=== PATIENT | female | born 1985 | race Caucasian/White ===

== ENCOUNTER → 2019-05-30 | Outpatient (CLI) | payer BC, SELFPAY ==
[2019-05-30 09:44] LABS: HEMOGLOBIN A1C 6.7 % (< 5.7)
== END ==
LOC: LB.CLINIC 09:19
PROVIDERS: ATTEND Nurse Practitioner Family
DX: E11.9 Type 2 diabetes mellitus without complications (principal)
CPT/HCPCS: 36415; 80048; 83036

== ENCOUNTER 2021-04-15 12:11 | Emergency (ER) | payer BC, OTHER ==
[2021-04-15] MEDS ORDERED: Albuterol/Ipratropium 3.0-0.5 MG/3 ML Neb Soln NEB SCH (13:00)
[2021-04-15 13:44] VITALS: BP 184/92; PULSE 87
[2021-04-15] MEDS ORDERED: LORazepam 2 MG/ML SDV IM ONE (13:59)
[2021-04-15] MEDS ORDERED: LORazepam 2 MG/ML SDV ONE (14:11)
--- NOTE | 2021-04-15 14:22 | EDM.PDOC ---
ED HPI GENERAL MEDICAL PROBLEM - General Chief Complaint: Respiratory Problem Stated Complaint: POSSIBLE ALLERGIC REACTION Time Seen by Provider: 04/15/21 12:15 Source of Information: Reports: Patient History Limitations: Reports: No Limitations - History of Present Illness INITIAL COMMENTS - FREE TEXT/NARRATIVE: 35-year-old female presents to the ED complaining of shortness of breath, chest tightness, flushing. Symptoms came on gradually today while at work, patient felt like she could not keep her mask on due to her feeling of shortness of breath. Patient has had similar responses in the past usually due to asthma or anxiety. Patient has been dealing with increased allergy issues over the last couple weeks, with increased phlegm production. Patient has been treating herself with Tasia. Has been exposed to multiple known allergens to include mowing her lawn, and be exposed to smokers. Patient also got a booster shot for her Covid vaccine yesterday. Positive for: Headache, dyspnea on exertion, dizzy lightheaded, near syncope, flushed. Negative for: Cardiac chest pain, syncope/loss of consciousness, trauma, blurred vision, difficulty swallowing, bloating, constipation diarrhea, dark tarry stool/blood on stool, urine has been normal color smell frequency volume. 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 States she had it when she was younger and on no medications at this time. 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: Reports: Polycystic Ovaries, Other (See Below) Other PAYROLL MANAGER History: HPV Psychiatric History: Reports: Bipolar Endocrine/Metabolic History: Reports: Diabetes, Type II - Infectious Disease History Infectious Disease History: Reports: Chicken Pox, Influenza - Past Surgical History HEENT Surgical History: Reports: Adenoidectomy, Tonsillectomy Musculoskeletal Surgical History: Reports: Other (See Below) Other Musculoskeletal Surgeries/Procedures:: Pt has had a previous ankle surgery Social & Family History - Recreational Drug Use Recreational Drug Use: No ED ROS GENERAL - Review of Systems Review Of Systems: Comprehensive ROS is negative, except as noted in HPI. ED EXAM, GENERAL - Physical Exam Exam: See Below Free Text/Narrative:: 35-year-old female found sitting on the stretcher in bay 3. No apparent distress. GCS 456. Speaking in full sentences. Face flushed. Exam Limited By: No Limitations General Appearance: Alert, WD/WN, No Apparent Distress Eye Exam: Bilateral Eye: EOMI, PERRL Ears: Normal Canal, Hearing Grossly Normal, Other (Serous fluid behind TMs bilaterally) Ear Exam: Bilateral Ear: Canal Normal, Other (Serous effusion bilateral) Nose: Normal Inspection, Normal Mucosa (Pale mucosa), No Blood Throat/Mouth: Normal Inspection, Normal Lips, Normal Teeth, Normal Gums, Normal Oropharynx, Normal Voice, No Airway Compromise, Other (Evidence of postnasal drip) Head: Atraumatic, Normocephalic Neck: Normal Inspection, Supple, Non-Tender, Full Range of Motion. No: Lymphadenopathy (R), Lymphadenopathy (L) Respiratory/Chest: No Respiratory Distress, Lungs Clear, Normal Breath Sounds, No Accessory Muscle Use, Chest Non-Tender. No: Respiratory Distress, Crackles, Rales, Rhonchi, Wheezing, Stridor Cardiovascular: Normal Peripheral Pulses, Regular Rate, Rhythm, No Edema, No Gallop, No JVD, No Murmur, No Rub GI/Abdominal: Soft, Non-Tender, No Organomegaly, No Distention, No Mass Back Exam: Normal Inspection. No: CVA Tenderness (R), CVA Tenderness (L) Extremities: Normal Inspection, Normal Range of Motion, Non-Tender, No Pedal Edema, Normal Capillary Refill, Other (Chronic swelling due to previous right ankle injury) Neurological: Alert, Oriented, Normal Cognition, Normal Gait, Normal Reflexes, No Motor/Sensory Deficits Psychiatric: Normal Affect, Normal Mood Skin Exam: Warm (Flushed in the face), Dry Lymphatic: No Adenopathy #1 Interpretation EKG Date: 04/15/21 Rhythm: NSR P-Wave: Present QRS: Normal ST-T: Normal Course - Vital Signs Last Recorded V/S: Last Vital Signs Temp 96 F L 04/15/21 12:24 Pulse 87 04/15/21 13:44 Resp 18 04/15/21 13:44 BP 184/92 H 04/15/21 13:44 Pulse Ox 99 04/15/21 13:44 - Orders/Labs/Meds Orders: Active Orders 24 hr Category Date Time Status RT Aerosol Therapy [RC] ASDIRECTED Care 04/15/21 12:47 Ordered Albuterol/Ipratropium [DuoNeb 3.0-0.5 MG/3 ML] Med 04/15/21 13:00 Ordered 3 ml NEB QIDRT Medication Orders Albuterol/Ipratropium (Albuterol/Ipratropium 3.0-0.5 Mg/3 Ml Neb Soln) 3 ml NEB QID JOSE Last Admin: 04/15/21 13:28 Dose: 3 ml Documented by: MAYCO Labs: Laboratory Tests 04/15/21 04/15/21 04/15/21 Range/Units 12:52 12:53 13:26 WBC 8.5 (4.0-11.0) K/uL RBC 4.53 (3.80-5.80) M/uL Hgb 13.5 (11.5-16.5) g/dL Hct 39.4 (37.0-47.0) % MCV 87 (76-96) fL MCH 29.8 (27.0-32.0) pg MCHC 34.3 (31.0-35.0) g/dL RDW 13.2 (11.0-16.0) % Plt Count 287 (150-500) K/uL MPV 10.1 H (6.0-10.0) fL Neut % (Auto) 76.5 H (45.0-70.0) % Lymph % (Auto) 14.8 L (20.0-40.0) % Sullivan % (Auto) 6.1 (3.0-10.0) % Eos % (Auto) 2.2 (1.0-5.0) % Baso % (Auto) 0.4 (0.0-0.5) % Neut # (Auto) 6.48 (2.00-7.50) K/uL Lymph # (Auto) 1.25 L (1.50-4.00) K/uL Sullivan # (Auto) 0.52 (0.20-0.80) K/uL Eos # (Auto) 0.19 (0.04-0.40) K/uL Baso # (Auto) 0.03 (0.02-0.10) K/uL Sodium (136-145) mmol/L Potassium (3.5-5.1) mmol/L Chloride (98-107) mmol/L Carbon Dioxide (21.0-32.0) mmol/L Anion Gap (5.0-15.0) mmol/L BUN (8-26) mg/dL Creatinine (0.55-1.02) mg/dL Est Cr Clr Drug Dosing Estimated GFR (MDRD) (>60) MLS/MIN BUN/Creatinine Ratio (6-25) Glucose (74-100) mg/dL Calcium (8.5-10.1) mg/dL Urine Color Yellow Urine Appearance Clear (CLEAR) Urine pH 6.5 (5.0-8.0) Ur Specific [place] 1.025 (1.003-1.030) Urine Protein Negative (NEGATIVE) mg/dL Urine Glucose (UA) 250 H (NEGATIVE) mg/dL Urine Ketones 40 H (NEGATIVE) mg/dL Urine Occult Blood Negative (NEGATIVE) Urine Nitrite Negative (NEGATIVE) Urine Bilirubin Negative (NEGATIVE) Urine Urobilinogen 0.2 (0.2-1.0) E.U./dL Ur Leukocyte Esterase Negative (NEGATIVE) SARS CoV-2 RNA Rapid BRITTA Negative 04/15/21 Range/Units 13:26 WBC (4.0-11.0) K/uL RBC (3.80-5.80) M/uL Hgb (11.5-16.5) g/dL Hct (37.0-47.0) % MCV (76-96) fL MCH (27.0-32.0) pg MCHC (31.0-35.0) g/dL RDW (11.0-16.0) % Plt Count (150-500) K/uL MPV (6.0-10.0) fL Neut % (Auto) (45.0-70.0) % Lymph % (Auto) (20.0-40.0) % Sullivan % (Auto) (3.0-10.0) % Eos % (Auto) (1.0-5.0) % Baso % (Auto) (0.0-0.5) % Neut # (Auto) (2.00-7.50) K/uL Lymph # (Auto) (1.50-4.00) K/uL Sullivan # (Auto) (0.20-0.80) K/uL Eos # (Auto) (0.04-0.40) K/uL Baso # (Auto) (0.02-0.10) K/uL Sodium 137 (136-145) mmol/L Potassium 3.9 (3.5-5.1) mmol/L Chloride 103 (98-107) mmol/L Carbon Dioxide 25.8 (21.0-32.0) mmol/L Anion Gap 12.1 (5.0-15.0) mmol/L BUN 10 D (8-26) mg/dL Creatinine 0.80 (0.55-1.02) mg/dL Est Cr Clr Drug Dosing TNP Estimated GFR (MDRD) > 60 (>60) MLS/MIN BUN/Creatinine Ratio 12.5 (6-25) Glucose 211 H (74-100) mg/dL Calcium 9.2 (8.5-10.1) mg/dL Urine Color Urine Appearance (CLEAR) Urine pH (5.0-8.0) Ur Specific [place] (1.003-1.030) Urine Protein (NEGATIVE) mg/dL Urine Glucose (UA) (NEGATIVE) mg/dL Urine Ketones (NEGATIVE) mg/dL Urine Occult Blood (NEGATIVE) Urine Nitrite (NEGATIVE) Urine Bilirubin (NEGATIVE) Urine Urobilinogen (0.2-1.0) E.U./dL Ur Leukocyte Esterase (NEGATIVE) SARS CoV-2 RNA Rapid BRITTA Meds: Medications Generic Name Dose Route Start Last Admin Trade Name Freq PRN Reason Stop Dose Admin Albuterol/Ipratropium 3 ml 04/15/21 13:00 04/15/21 13:28 Albuterol/Ipratropium 3.0-0.5 Mg/3 Ml Neb Soln NEB 3 ml QID JOSE Administration Discontinued Medications Generic Name Dose Route Start Last Admin Trade Name Freq PRN Reason Stop Dose Admin Lorazepam 1 mg 04/15/21 13:59 04/15/21 14:02 Lorazepam 2 Mg/Ml Sdv IM 04/15/21 14:00 1 mg ONETIME ONE Administration Lorazepam Confirm 04/15/21 14:11 04/15/21 14:03 Lorazepam 2 Mg/Ml Sdv Administered 04/15/21 14:12 Not Given Dose 2 mg .ROUTE .STK-MED ONE Departure - Departure Time of Disposition: 02:45 Disposition: Home, Self-Care 01 Condition: Good Clinical Impression: Environmental allergies, Anxiety - Discharge Information *PRESCRIPTION DRUG MONITORING PROGRAM REVIEWED*: No *COPY OF PRESCRIPTION DRUG MONITORING REPORT IN PATIENT BENNY: No Instructions: Allergies, Adult, [id number] Referrals: PCP,None [Primary Care Provider] - Sepsis Event Note (ED) - Evaluation Sepsis Screening Result: No Definite Risk - Focused Exam Vital Signs: Vital Signs Temp Pulse Resp BP Pulse Ox 04/15/21 13:44 87 18 184/92 H 99 04/15/21 12:41 18 176/96 H 100 04/15/21 12:24 96 F L 82 20 182/98 H 100 - My Orders Last 24 Hours: My Active Orders 04/15/21 12:47 RT Aerosol Therapy [RC] ASDIRECTED 04/15/21 13:00 Albuterol/Ipratropium [DuoNeb 3.0-0.5 MG/3 ML] 3 ml NEB QIDRT - Assessment/Plan Last 24 Hours: My Active Orders 04/15/21 12:47 RT Aerosol Therapy [RC] ASDIRECTED 04/15/21 13:00 Albuterol/Ipratropium [DuoNeb 3.0-0.5 MG/3 ML] 3 ml NEB QIDRT Assessment:: Based on patient's history, exam, signs and cyst symptoms patient's condition most likely due to a combination of increased immune response secondary to COVID-19 vaccination booster, exposure to known allergens, and history of anxiety. Patient's EKG was negative for acute cardiac event, lung sounds were clear bilaterally despite subjective symptom of tightness patient was given a DuoNeb which made a tightness disappear, patient has been under a lot of stress with work and does not feel like she can wear her mask today. Plan: Airway breathing circulation, history, exam, DuoNeb, labs including CBC, BMP, UA, beta hCG, EKG, discussed patient's condition with her using shared decision making on how to progress with addressing patient's concerns of not starting any type of psychiatric medications long-term, and preference for natural solutions it was decided together that we should try a one-time dose of antianxiety medication to see if we get improvement the patient's subjective symptoms. She was given 1 mg of lorazepam IM, patient was observed, all patient's questions were answered, patient understood treatment plan and agreed. Patient was discharged in stable condition with the intention of taking the rest of today off from work.
== END 2021-04-15 14:45 | disposition home or self-care (01) ==
LOC: LB.ED 12:11
DX: F41.9 Anxiety disorder, unspecified (principal); E11.9 Type 2 diabetes mellitus without complications; Z91.09 Other allergy status, other than to drugs and biological substances; Z91.048 Other nonmedicinal substance allergy status; Z20.822 Contact with and (suspected) exposure to COVID-19
CPT/HCPCS: 36415; 80048; 81003; 85025; 93005; 96372; 99285-25; J2060; J7620-GY; U0002

== ENCOUNTER 2021-06-07 15:23 | Emergency (ER) | payer BC ==
[2021-06-07] MEDS ORDERED: Lidocaine 1% 30 ML SDV INJECT ONE (15:40)
--- NOTE | 2021-06-07 16:18 | EDM.PDOC ---
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 She tells me it was a new knife. No loss of function to her knowledge. She is current on her tetanus. - Related Data Allergies Allergy/AdvReac Type Severity Reaction Status Date / Time cinnamon Allergy Redness Verified 04/15/21 12:23 SEASONAL Allergy Sneezing Uncoded 04/15/21 12:23 Home Meds: Home Meds norgestimate-ethinyl estradioL [Tri-Previfem Tablet] 1 tab PO DAILY 06/28/15 [History] glyBURIDE [Micronase] 5 mg PO DAILY 04/15/21 [History] Past Medical History Respiratory History: Reports: Asthma, Other (See Below) Other Respiratory History: Pt has hx of asthma. States she had it when she was younger and on no medications at this time. 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 Skin: Reports: Other (laceration to finger.) ED EXAM, SKIN/RASH Exam: See Below Extremities: Other (Examining her left 5th finger reveals a transverse laceration on the palmar aspect, 2 cm long on the mid phalanx. It is thru the epidermis and slightly into the subq tissue. She sha full ROM against resistance.) ED SKIN PROCEDURES - Laceration/Wound Repair Left Ventral Digit - 5th (Baby) Anesthetic Type: Local Local Anesthesia - Lidocaine (Xylocaine): 1% Plain Local Anesthetic Volume: 2cc Skin Prep: Chlorhexidine (Hibiciens), Providone-Iodine (Betadine), Sterile Drape Closed with: Sutures Lac/Wound length In cm: 2 Suture Size: 5-0 # of Sutures: 4 Suture Type: Nylon Course - Re-Assessments/Exams Free Text/Narrative Re-Assessment/Exam: 06/07/21 16:22 Monitor for infection. Tylenol or motrin as needed for pain. Change dressing daily for 2-3 days, then leave open when clean. Off work for 2 days. Suture removal in 8-10 days. Departure - Departure Time of Disposition: 16:10 Disposition: Home, Self-Care 01 Condition: Good Clinical Impression: Laceration of finger of left hand Qualifiers: Encounter type: initial encounter Finger: little finger Damage to nail status: without damage Foreign body presence: without foreign body Qualified Code(s): S61.217A - Laceration without foreign body of left little finger without damage to nail, initial encounter - Discharge Information *PRESCRIPTION DRUG MONITORING PROGRAM REVIEWED*: No *COPY OF PRESCRIPTION DRUG MONITORING REPORT IN PATIENT BENNY: No Referrals: Lemuel Gonzales MD [Primary Care Provider] -
[2021-06-07 16:27] VITALS: PULSE 72
== END 2021-06-07 16:05 | disposition home or self-care (01) ==
LOC: LB.ED 15:23
DX: S61.217A Laceration without foreign body of left little finger without damage to nail, initial encounter (principal); E11.9 Type 2 diabetes mellitus without complications; Z91.048 Other nonmedicinal substance allergy status; W26.0XXA Contact with knife, initial encounter; Y92.239 Unspecified place in hospital as the place of occurrence of the external cause; Y99.0 Civilian activity done for income or pay
CPT/HCPCS: 12001; 99282-25

== ENCOUNTER 2023-02-25 13:00 | Emergency (ER) | payer BC ==
[2023-02-25 14:12] VITALS: BP 150/86; PULSE 80
[2023-02-25 14:32] LABS: APPEARANCE,URINE CLEAR (CLEAR); BILIRUBIN,URINE NEGATIVE (NEGATIVE); COLOR,URINE YELLOW; GLUCOSE,URINE NEGATIVE (NEGATIVE); KETONES,URINE 15 mg/dL (NEGATIVE); LEUKOCYTE ESTERASE,URINE NEGATIVE (NEGATIVE); NITRITE,URINE NEGATIVE (NEGATIVE); OCCULT BLOOD,URINE TRACE-INTACT (NEGATIVE); PH,URINE 5.5 (5.0-8.0); PROTEIN,URINE NEGATIVE (NEGATIVE); UROBILINOGEN,URINE 0.2 E.U./dL (0.2-1.0)
[2023-02-25 14:35] LABS: BACTERIA,URINE OCCASIONAL /HPF; RBC,URINE 0-5 /HPF; SQUAMOUS EPITHELIAL CELLS,UR MODERATE /HPF; WBC,URINE 0-5 /HPF
[2023-02-25 15:15] LABS: BASOPHILS ABSOLUTE AUTO 0.03 K/uL (0.02-0.10); BASOPHILS PERCENT AUTO 0.3 % (0.0-0.5); EOSINOPHILS ABSOLUTE AUTO 0.24 K/uL (0.04-0.40); EOSINOPHILS PERCENT AUTO 2.7 % (1.0-5.0); HEMATOCRIT 41.2 % (37.0-47.0); HEMOGLOBIN 14.4 g/dL (11.5-16.5); LYMPHOCYTES ABSOLUTE AUTO 2.02 K/uL (1.50-4.00); LYMPHOCYTES PERCENT AUTO 22.6 % (20.0-40.0); MEAN CORPUSCULAR HEMOGLOBIN 30.9 pg (27.0-32.0); MEAN CORPUSCULAR VOLUME 88 fL (76-96); MEAN PLATELET VOLUME 9.8 fL (6.0-10.0); MONOCYTES ABSOLUTE AUTO 0.69 K/uL (0.20-0.80); MONOCYTES PERCENT AUTO 7.7 % (3.0-10.0); NEUTROPHILS ABSOLUTE AUTO 5.97 K/uL (2.00-7.50); NEUTROPHILS PERCENT AUTO 66.7 % (45.0-70.0); PLATELET COUNT,PLT 275 K/uL (150-500); RED BLOOD CELL COUNT 4.66 M/uL (3.80-5.80); RED CELL DISTRIBUTION WIDTH 13.2 % (11.0-16.0)
[2023-02-25 15:26] LABS: HEMOGLOBIN A1C 6.7 % (< 5.7)
[2023-02-25] MEDS ORDERED: Ciprofloxacin 500 MG Tab ONE (15:30)
[2023-02-25 15:37] LABS: A/G RATIO 0.9 (0.8-2.0); ALANINE AMINOTRANSFERASE,ALT 27 U/L (12-78); ALBUMIN 3.6 g/dL (3.4-5.0); ALKALINE PHOSPHATASE 47 U/L (46-116); ANION GAP 9.7 mmol/L (5.0-15.0); ASPARTATE AMNIOTRANSFERASE,AST 16 U/L (15-37); BILIRUBIN TOTAL 0.4 mg/dL (0.0-1.0); BLOOD UREA NITROGEN,BUN 15 mg/dL (8-26); BUN/CREATININE RATIO 18.8 (6-25); CALCIUM 9.1 mg/dL (8.5-10.1); CARBON DIOXIDE,CO2 28.5 mmol/L (21.0-32.0); CHLORIDE,CL 102 mmol/L (98-107); ESTIMATED GFR 97 mL/min (>60); GLUCOSE RANDOM 123 mg/dL (74-100); POTASSIUM,K 4.2 mmol/L (3.5-5.1); PROTEIN TOTAL,TP 7.5 g/dL (6.4-8.2); SODIUM,NA 136 mmol/L (136-145)
[2023-02-25] MEDS ORDERED: metroNIDAZOLE 500 MG Tab PO SCH (16:00)
== END 2023-02-25 16:15 | disposition home or self-care (01) ==
LOC: LB.ED 13:00
DX: N30.01 Acute cystitis with hematuria (principal); K52.9 Noninfective gastroenteritis and colitis, unspecified; J45.909 Unspecified asthma, uncomplicated; E11.9 Type 2 diabetes mellitus without complications; Z79.899 Other long term (current) drug therapy; Z91.018 Allergy to other foods; Z91.048 Other nonmedicinal substance allergy status
CPT/HCPCS: 36415; 80053; 81001; 83036; 85025; 99283; 99284; A9270-GY

== ENCOUNTER 2023-09-30 02:27 | Emergency (ER) | payer BC ==
[2023-09-30] MEDS ORDERED: Sodium Chloride 0.9% 10 ML Syringe FLUSH PRN (02:54)
[2023-09-30] MEDS: Ondansetron 4 MG/2 ML SDV IVPUSH ONE (03:11)
[2023-09-30] MEDS: Morphine 4 MG/ML VIAL IVPUSH ONE (03:11)
[2023-09-30 03:16] LABS: APPEARANCE,URINE CLOUDY (CLEAR); BILIRUBIN,URINE NEGATIVE (NEGATIVE); COLOR,URINE YELLOW; GLUCOSE,URINE NEGATIVE (NEGATIVE); KETONES,URINE >=160 mg/dL (NEGATIVE); LEUKOCYTE ESTERASE,URINE NEGATIVE (NEGATIVE); NITRITE,URINE NEGATIVE (NEGATIVE); OCCULT BLOOD,URINE NEGATIVE (NEGATIVE); PH,URINE 5.5 (5.0-8.0); PROTEIN,URINE 100 mg/dL (NEGATIVE); UROBILINOGEN,URINE 0.2 E.U./dL (0.2-1.0)
[2023-09-30 03:21] LABS: BASOPHILS ABSOLUTE AUTO 0.04 K/uL (0.02-0.10); BASOPHILS PERCENT AUTO 0.3 % (0.0-0.5); EOSINOPHILS PERCENT AUTO 0.7 % (1.0-5.0); HEMATOCRIT 38.4 % (37.0-47.0); HEMOGLOBIN 12.9 g/dL (11.5-16.5); LYMPHOCYTES ABSOLUTE AUTO 1.22 K/uL (1.50-4.00); LYMPHOCYTES PERCENT AUTO 8.2 % (20.0-40.0); MEAN CORPUSCULAR HEMOGLOBIN 29.7 pg (27.0-32.0); MEAN CORPUSCULAR HGB CONC 33.6 g/dL (31.0-35.0); MEAN CORPUSCULAR VOLUME 89 fL (76-96); MEAN PLATELET VOLUME 10.1 fL (6.0-10.0); MONOCYTES ABSOLUTE AUTO 0.99 K/uL (0.20-0.80); MONOCYTES PERCENT AUTO 6.7 % (3.0-10.0); NEUTROPHILS ABSOLUTE AUTO 12.51 K/uL (2.00-7.50); NEUTROPHILS PERCENT AUTO 84.1 % (45.0-70.0); PLATELET COUNT,PLT 329 K/uL (150-500); RED BLOOD CELL COUNT 4.34 M/uL (3.80-5.80); RED CELL DISTRIBUTION WIDTH 14.2 % (11.0-16.0); WHITE BLOOD CELL COUNT,WBC 14.9 K/uL (4.0-11.0)
[2023-09-30 03:24] LABS: RBC,URINE 0-5 /HPF; SQUAMOUS EPITHELIAL CELLS,UR FEW /HPF; WBC,URINE 0-5 /HPF
[2023-09-30 03:25] LABS: BACTERIA,URINE FEW /HPF
[2023-09-30 03:33] LABS: A/G RATIO 0.9 (0.8-2.0); ALBUMIN 3.5 g/dL (3.4-5.0); ANION GAP 16.9 mmol/L (5.0-15.0); BILIRUBIN TOTAL 0.8 mg/dL (0.0-1.0); BUN/CREATININE RATIO 9.2 (6-25); CALCIUM 8.9 mg/dL (8.5-10.1); CARBON DIOXIDE,CO2 22.9 mmol/L (21.0-32.0); CREATININE 0.76 mg/dL (0.55-1.02); EST CRCL DRUG DOSING (CG) 98.56 mL/min; POTASSIUM,K 3.8 mmol/L (3.5-5.1); PROTEIN TOTAL,TP 7.6 g/dL (6.4-8.2)
[2023-09-30] MEDS: Ondansetron 4 MG/2 ML SDV ONE ×2 (03:37→09:12)
[2023-09-30] MEDS: Morphine 4 MG/ML VIAL ONE (03:37)
[2023-09-30] MEDS: Sodium Chloride 0.9% 10 ML Syringe FLUSH PRN (04:13)
[2023-09-30] MEDS: Iopamidol 612 MG/ML 100 ML Bottle IV SCH (04:14)
[2023-09-30] MEDS: Sodium Chloride 0.9% 50 ML IV ONE (04:14)
[2023-09-30] MEDS: Sodium Chloride 0.9% 1,000 ML IV SCH ×2 (04:36→06:20)
[2023-09-30] MEDS: HYDROmorphone 2 MG/ML Syringe IVPUSH ONE (04:44)
[2023-09-30] MEDS: HYDROmorphone 2 MG/ML Syringe ONE ×2 (04:49→09:25)
[2023-09-30] MEDS: Piperacillin/Tazobactam 4.5 GM in Sodium Chloride 0.9% 100 ML IV ONE (06:46)
[2023-09-30 08:25] VITALS: PULSE 99
[2023-09-30 10:59] VITALS: BP 127/77
== END 2023-09-30 10:10 ==
LOC: LB.ED 02:27
DX: K35.30 Acute appendicitis with localized peritonitis, without perforation or gangrene (principal); E11.9 Type 2 diabetes mellitus without complications; Z79.899 Other long term (current) drug therapy; Z91.048 Other nonmedicinal substance allergy status; Z88.8 Allergy status to other drugs, medicaments and biological substances
CPT/HCPCS: 36415; 74177; 80053; 81001; 81025; 85025; 93005; 96361; 96365; 96375; 96376; 99285; J1170; J2270; J2405; J2543; J3490; J7030; Q9967; 93010; 99284